=== PATIENT | female | born 1980 | race African-American/Black ===

== ENCOUNTER 2018-07-31 07:50 | Outpatient (CLI) | payer MEDICAID ==
[~2018-07-31] VITALS: Ht 177.8 cm; Wt 66.6 kg
[2018-07-31] MEDS ORDERED: PREN-93 PO (08:01)
[2018-07-31] MEDS ORDERED: FERR134T PO (08:01)
[2018-07-31 08:02] VITALS: BP 126/82; PULSE 100; RESP 20; Ht 177.8 cm; Wt 66.6 kg
--- NOTE | 2018-07-31 09:44 | PN ---
Triage Information Date/Time Reason for visit: Leaking fluid Weeks of Gestation 38-year-old 4 para 1 at 29 weeks of gestation with estimated date of delivery October 16, 2018 Patient presents with chief complaint of leaking fluid, she reports positive movement No vaginal bleeding and no uterine contractions Patient reports a history of urinary tract infection earlier during this /Para 4 para 1 Diabetes: none Hypertention: none Objective Vital Signs Date Temp Pulse Resp B/P (MAP) Pulse Ox O2 O2 Flow FiO2 Time Delivery Rate 07/31/18 97.9 100 20 126/82 Room Air 08:02 (97) Heart Rate: 150's Heart Rate Comments heart rate tracing category 2 in the beginning Contractions: None Results/Medications Results 24 hrs Laboratory Tests Test 07/31/18 08:00 07/31/18 08:10 Urine Color YELLOW Urine Clarity SLIGHTLY CLOUDY A Urine pH 7.0 Urine Specific [place] 1.015 Urine Ketones NEGATIVE Urine Nitrite NEGATIVE Urine Bilirubin NEGATIVE Urine Urobilinogen NEGATIVE Urine Leukocyte Esterase 2+ H Urine Microscopic RBC 0 Urine Microscopic WBC 5 Urine Squamous Epithelial Cells MODERATE Urine Hemoglobin NEGATIVE Urine Glucose NEGATIVE Urine Total Protein NEGATIVE Membranes Rupture NEGATIVE Imaging Results PROCEDURE: US OB biophysical profile. CLINICAL INDICATION: decreased movements, small for dates TECHNIQUE: Multiple sonographic images of the pelvis were obtained. The images were reviewed on a PACS workstation. COMPARISON: 07/31/2018 FINDINGS: There is a single live intrauterine gestation. Cardiac activity is present with 150 beats per minute. There is a vertex presentation. The placenta is anterior/posterior. There is no evidence of placental abruption. There is a normal amount of amniotic fluid with an MIMI = 13.3 cm. Biophysical profile: movement 2/2 tone 2/2. breathing 2/2 MIMI 2/2 Total 01/06 RPTAT: AA . IMPRESSION: Normal biophysical profile. . .Lebron Tam MD, Date Time Electronically viewed and signed by .Lebron Tam MD, MD on 07/31/2018 09:44 .S/ CC: ADAM GARIBAY MD [id number] PROCEDURE: US OB. CLINICAL INDICATION: Size and dates TECHNIQUE: Multiple sonographic images of the pelvis and gravid uterus were obtained. The images were reviewed on a PACS workstation. COMPARISON: No prior studies are available for comparison. FINDINGS: Gestation: Single live intrauterine gestation. Cardiac activity: 150 beats per minute. Presentation: Vertex. Placenta: Location: Anterior/posterior Appearance: No previa or abruption. Amniotic Fluid: MIMI = 13.2 cm Measurements: BPD = 7.2 cm, 29 weeks and 0 days HC = 26.2 cm, 28 weeks and 3 days AC = 24.2 cm, 28 weeks and 3 days FL = 5.7 cm, 30 weeks and 0 days Gestational Age: AUA estimated gestational age: 29 weeks 0 days LMP estimated gestational age: 29 weeks 0 days AUA estimated date of delivery: 10/16/18 The EFW = 1321 g, 37.2%ile based on LMP age. RPTAT: AA IMPRESSION: Single live intrauterine gestation of 29 weeks 0 days by ultrasound criteria. .Lebron Tam MD, MD Date Time Electronically viewed and signed by .Lebron Tam MD, MD on 07/31/2018 09:45 .S/ CC: ADAM GARIBAY MD [phone] Disposition: Discharge Assessment/Plan Urinalysis suggestive of urinary tract infection Prescription for Macrobid was given Urine culture was sent Prolonged heart rate monitoring for several hours and heart rate tracing remained category 1 Patient to return in 2 days for repeat NST and BPP kick count instructions were given Instructed to increase fluid hydration Patient instructed to follow-up with her own MANAGER SALT in 1-2 days ADAM GARIBAY MD Jul 31, 2018 09:44
--- NOTE | 2018-07-31 13:47 | TRIAGE ---
OB Triage Datetime Report Generated by CPN: 07/31/2018 13:47 Datetime: 07/31/2018 12:58 Labor Evaluation Frequency: 0 Monitor Mode: External Pattern: Normal: <= 5 Contractions in 10 Minutes Resting Tone [place]: Relaxed Heart Rate FHR Baseline Rate: 150 Monitor Mode: External US Variability: Moderate 6-25 bpm Accelerations: 15X15 Decelerations: None Category: Category I Datetime: 07/31/2018 12:56 Comments: VIEWED BY MD, OK TO D/C HOME Datetime: 07/31/2018 12:00 Labor Evaluation Frequency: 0 Monitor Mode: External Pattern: Normal: <= 5 Contractions in 10 Minutes Resting Tone [place]: Relaxed Heart Rate FHR Baseline Rate: 150 Monitor Mode: External US Variability: Moderate 6-25 bpm Accelerations: 15X15 Decelerations: None Category: Category I Datetime: 07/31/2018 11:00 Labor Evaluation Frequency: 0 Monitor Mode: External Pattern: Normal: <= 5 Contractions in 10 Minutes Resting Tone [place]: Relaxed Heart Rate FHR Baseline Rate: 150 Monitor Mode: External US Variability: Moderate 6-25 bpm Accelerations: 15X15 Decelerations: Variable Category: Category II Comments: REVIEWED BY DR GARIBAY Datetime: 07/31/2018 10:00 Labor Evaluation Frequency: 0 Monitor Mode: External Pattern: Normal: <= 5 Contractions in 10 Minutes Resting Tone [place]: Relaxed Heart Rate FHR Baseline Rate: 150 Monitor Mode: External US Variability: Moderate 6-25 bpm Accelerations: 15X15 Decelerations: None Category: Category I Datetime: 07/31/2018 09:26 Comments: U/S BACK AT BEDSIDE Datetime: 07/31/2018 09:00 Labor Evaluation Frequency: 0 Monitor Mode: External Pattern: Normal: <= 5 Contractions in 10 Minutes Resting Tone [place]: Relaxed Heart Rate FHR Baseline Rate: 150 Monitor Mode: External US Variability: Moderate 6-25 bpm Accelerations: 10X10 Decelerations: Variable Category: Category II Datetime: 07/31/2018 08:58 Comments: decel noted fr baseline 150 down to 120's for 50 seconds with spontaneous return to basel ine Datetime: 07/31/2018 08:44 Comments: MD STATES TRACING IS APPROPRIATE FOR GESTATIONAL AGE Datetime: 07/31/2018 08:20 EGA: 29.0 Datetime: 07/31/2018 08:19 Time of Arrival: 07/31/2018 07:45 Arrived By: Ambulatory Arrived From: Home Chief Complaint: VAGINAL LEAKING Movement: Present Contractions: Denies/Absent Rupture of Membranes: Unsure Vaginal Bleeding: None Vaginal Discharge: Present Abdominal Trauma: Not Applicable Patient Complaints: Cramping Additional Patient Complaints: IRREGULAR CRAMPING Time Provider Notified: 07/31/2018 07:45 Provider Notified: [place] Initial Plan: NST AND CALL OB FOR ORDERS Datetime: 07/31/2018 08:11 Comments: u/s tech at bedside Datetime: 07/31/2018 08:00 Assessment Type: Triage Maternal Assessment Level of Consciousness: Fully Conscious DTR's/Clonus: DTRs 2+; No Clonus Headache: Denies Blurred Vision: No Respiratory Effort: Unlabored; Regular Rhythm; Equal Expansion Nausea/Vomiting: Denies RUQ Epigastric Pain: Denies Lower Extremities Edema: None Degree: None Upper Extremities Edema: None Degree: None Facial Edema: None Fall Risk Assessment History of Falling: (0) No Secondary Diagnosis: (0) No Ambulatory Aid: (0) Bedrest/Nurse Assist IV Therapy: (0) No Gait: (0) Normal/Bedrest/Immobile Mental Status: (0) Oriented to Own Ability Fall Score: 0 Fall Risk Score Definition: No Risk: No action required
== END 2018-07-31 13:12 | disposition home or self-care (01) ==
LOC: L-D 07:50 → OBT 07:50
PROVIDERS: ATTEND Specialist
DX: O26.853 Spotting complicating pregnancy, third trimester (principal); O36.5930 Maternal care for other known or suspected poor fetal growth, third trimester, not applicable or unspecified; O23.43 Unspecified infection of urinary tract in pregnancy, third trimester; Z3A.29 29 weeks gestation of pregnancy
CPT/HCPCS: 76815; 76818; 81001; 84112; 87086; Z7500; G0463

== ENCOUNTER 2018-08-02 10:22 | Outpatient (CLI) | payer MEDICAID ==
[~2018-08-02] VITALS: Ht 177.8 cm; Wt 66.4 kg
[~2018-08-02 10:22] MED LIST: FERR134T PO; PREN-93 PO
[2018-08-02 10:29] VITALS: Ht 177.8 cm; Wt 66.4 kg
--- NOTE | 2018-08-02 11:47 | TRIAGE ---
OB Triage Datetime Report Generated by CPN: 08/02/2018 11:47 Datetime: 08/02/2018 10:53 Time of Arrival: 08/02/2018 10:20 EGA: 29.2 Arrived By: Ambulatory Arrived From: Home Chief Complaint: Follow up BPP/MIMI Movement: Present Contractions: Denies/Absent Rupture of Membranes: Denies Vaginal Bleeding: Normal Show Vaginal Discharge: Denies Recent Sexual Intercouse: Denies Abdominal Trauma: Not Applicable Patient Complaints: None Initial Plan: NST/BPP _ MIMI Datetime: 08/02/2018 10:50 Labor Evaluation Monitor Mode: External Resting Tone [place]: Relaxed Heart Rate FHR Baseline Rate: 150 Monitor Mode: External US FHR Baseline Changes: No Baseline Change Variability: Moderate 6-25 bpm Accelerations: 15X15 Decelerations: None Category: Category I Comments: NST DONE Pain Assessment Pain Presence: None/Denies Datetime: 08/02/2018 10:30 Assessment Type: Triage Maternal Assessment Level of Consciousness: Fully Conscious DTR's/Clonus: DTRs 2+; No Clonus Headache: Denies Blurred Vision: No Respiratory Effort: Unlabored; Regular Rhythm; Equal Expansion Breath Sounds, Left: Clear and Equal Breath Sounds, Right: Clear and Equal Nausea/Vomiting: Denies RUQ Epigastric Pain: Denies Lower Extremities Edema: None Degree: None Upper Extremities Edema: None Degree: None Facial Edema: None Fall Risk Assessment History of Falling: (0) No Secondary Diagnosis: (0) No Ambulatory Aid: (0) Bedrest/Nurse Assist IV Therapy: (0) No Gait: (0) Normal/Bedrest/Immobile Mental Status: (0) Oriented to Own Ability Fall Score: 0 Fall Risk Score Definition: No Risk: No action required Datetime: 08/02/2018 10:24 Monitor Mode: External US Datetime: 07/31/2018 08:20 EGA: 29.0 Datetime: 07/31/2018 08:00 Fall Score: 0 Fall Risk Score Definition: No Risk: No action required
--- NOTE | 2018-08-02 11:53 | PN ---
Triage Information Date/Time Reason for visit: Reepat NST BPP as she was check for PPROM last visit Weeks of Gestation 29+ /Para n/a Diabetes: none Hypertention: none Objective Heart Rate: 140's Contractions: None Disposition: Discharge Assessment/Plan BPP 03/10 Precautions discussed Follow up with provider Questions answered TYSON LOVELL M.D. Aug 02, 2018 11:52
== END 2018-08-02 11:50 | disposition home or self-care (01) ==
LOC: OBT 10:22 → L-D 10:23 → OBT 11:50
PROVIDERS: ATTEND Specialist
DX: O36.8130 Decreased fetal movements, third trimester, not applicable or unspecified (principal); Z3A.29 29 weeks gestation of pregnancy
CPT/HCPCS: 76818; Z7500; G0463

== ENCOUNTER 2018-09-19 20:01 | Outpatient (CLI) | payer MEDICAID ==
[~2018-09-19] VITALS: Ht 179.1 cm; Wt 66.4 kg
[2018-09-19 20:23] VITALS: BP 114/76; PULSE 102; RESP 20; Ht 179.1 cm; Wt 66.4 kg
--- NOTE | 2018-09-19 23:19 | PN ---
Triage Information Date/Time 09/19/18 Reason for visit: Vag spotting / bleeding Weeks of Gestation 36w1d /Para Diabetes: none Hypertention: none Additional information had intercourse this am dark blood no cramping pain Objective Vital Signs Date Temp Pulse Resp B/P (MAP) Pulse Ox O2 O2 Flow FiO2 Time Delivery Rate 09/19/18 98.2 102 20 114/76 Room Air 20:23 (89) Heart Rate Comments CAT I Contractions: None Results/Medications Imaging Results BPP 01/06 no previa or abruptio MIMI 15.7 Disposition: Discharge Assessment/Plan A IUP 36w1d postcoital bleeding P discharge home with routine labor instructions no more intercourse till delivery JUAN JOSÉ MELTON MD Sep 19, 2018 23:19
--- NOTE | 2018-09-20 01:03 | TRIAGE ---
OB Triage Datetime Report Generated by CPN: 09/20/2018 01:02 Datetime: 09/19/2018 21:34 Stage of : OB Triage Labor Evaluation Frequency: Irritability Monitor Mode: External Duration (sec)2399: 20-30 Quality: Mild Pattern: Normal: <= 5 Contractions in 10 Minutes Resting Tone [place]: Relaxed Heart Rate FHR Baseline Rate: 150 Monitor Mode: External US FHR Baseline Changes: No Baseline Change Variability: Moderate 6-25 bpm Accelerations: 15X15 Decelerations: None Category: Category I Pain Assessment Pain Scale: 0 Pain Presence: None/Denies Pain Type: N/A Datetime: 09/19/2018 21:30 Stage of : OB Triage Datetime: 09/19/2018 21:00 Stage of : OB Triage Labor Evaluation Frequency: Irritability/Occasional Monitor Mode: External Duration (sec)2399: 20-110 Quality: Mild Pattern: Normal: <= 5 Contractions in 10 Minutes Resting Tone [place]: Relaxed Heart Rate FHR Baseline Rate: 150 Monitor Mode: External US FHR Baseline Changes: No Baseline Change Variability: Moderate 6-25 bpm Accelerations: 15X15 Pain Assessment Pain Scale: 0 Pain Presence: None/Denies Pain Type: N/A Datetime: 09/19/2018 20:15 Stage of : OB Triage Datetime: 09/19/2018 20:07 Time of Arrival: 09/19/2018 19:53 EGA: 36.1 Arrived By: Ambulatory Arrived From: Home Chief Complaint: Pantyliner filled with dark red blood @1930. Sex this AM. Back pain yesterday. None today. Movement: Present Contractions: Denies/Absent Rupture of Membranes: Denies Vaginal Bleeding: Moderate; Dark Red Vaginal Discharge: Present Recent Sexual Intercouse: Yes Abdominal Trauma: Not Applicable Patient Complaints: Other Time Provider Notified: 09/19/2018 20:15 Provider Notified: Initial Plan: Monitor. U/S. Datetime: 09/19/2018 20:05 Stage of : OB Triage Assessment Type: Triage Maternal Assessment Level of Consciousness: Fully Conscious DTR's/Clonus: DTRs 2+; No Clonus Headache: Denies Blurred Vision: No Respiratory Effort: Unlabored; Regular Rhythm; Equal Expansion Breath Sounds, Left: Clear and Equal Breath Sounds, Right: Clear and Equal Nausea/Vomiting: Denies RUQ Epigastric Pain: Denies Lower Extremities Edema: None Degree: None Upper Extremities Edema: None Degree: None Facial Edema: None Temperature Route: Oral Fall Risk Assessment History of Falling: (0) No Secondary Diagnosis: (0) No Ambulatory Aid: (0) Bedrest/Nurse Assist IV Therapy: (0) No Gait: (0) Normal/Bedrest/Immobile Mental Status: (0) Oriented to Own Ability Fall Score: 0 Fall Risk Score Definition: No Risk: No action required Pain Assessment Pain Scale: 0 Pain Presence: None/Denies Pain Type: N/A Datetime: 09/19/2018 20:04 Monitor Mode: External Contraction Comments: [place] applied Heart Rate FHR Baseline Rate: 150 Monitor Mode: External US Comments: EFM applied Datetime: 08/02/2018 10:53 EGA: 29.2 Datetime: 08/02/2018 10:30 Fall Score: 0 Fall Risk Score Definition: No Risk: No action required Datetime: 07/31/2018 08:20 EGA: 29.0 Datetime: 07/31/2018 08:00 Fall Score: 0 Fall Risk Score Definition: No Risk: No action required
== END 2018-09-19 21:44 | disposition home or self-care (01) ==
LOC: OBT 20:01 → L-D 20:02 → OBT 21:44
PROVIDERS: ATTEND Specialist
DX: O26.893 Other specified pregnancy related conditions, third trimester (principal); N93.0 Postcoital and contact bleeding; O09.523 Supervision of elderly multigravida, third trimester; Z3A.36 36 weeks gestation of pregnancy
CPT/HCPCS: 76818; Z7500; G0463

== ENCOUNTER 2018-10-20 05:40 | Inpatient (IN) | payer MEDICAID ==
[~2018-10-20] VITALS: Ht 179.1 cm; Wt 70.5 kg
[2018-10-20] MEDS: LACTATED RINGER'S 1,000 ML IV SCH ×2 (06:20→22:22)
[2018-10-20 06:26] VITALS: Ht 179.1 cm; Wt 70.5 kg
[2018-10-20] MEDS ORDERED: OXYTOCIN 30 UNITS/LR 500 ML IV PRN (06:30)
[2018-10-20] MEDS ORDERED: METHYLERGONOVINE 0.2 MG INJ IM PRN (06:30)
[2018-10-20] MEDS ORDERED: MINERAL OIL LIGHT 10 ML VIAL TOP PRN (06:30)
[2018-10-20] MEDS ORDERED: LIDOCAINE 1% (MPF) 30 ML INJ INJ PRN (06:30)
[2018-10-20] MEDS ORDERED: OXYTOCIN 30 UNITS/LR 500 ML IV SCH ×2 (06:30)
[2018-10-20] MEDS ORDERED: MISOPROSTOL 200 MCG TAB PR PRN (06:30)
[2018-10-20] MEDS ORDERED: BUTORPHANOL 2 MG INJ IV PRN (06:30)
[2018-10-20] MEDS ORDERED: CARBOPROST 250 MCG INJ IM PRN (06:30)
[2018-10-20] MEDS ORDERED: IBUPROFEN 600 MG TAB PO PRN (06:30)
[2018-10-20] MEDS: OXYTOCIN 30 UNITS/LR 500 ML IV SCH (07:35)
--- NOTE | 2018-10-20 07:58 | HP ---
Date/Time of Note Date/Time of Note DATE: 10/20/18 TIME: 07:55 OB - History Hx of Present Free Text/Dictation 38 YO with IUP at 40.4 weeks with EDC 10/16/2018 who is here for IOL. EFW is under 8 Lb. NST with moderate variability and accelerations, but also one prolonged deceleration when she was on her back. This was d/w patient. possible need for C/S d/w pt Care: Good Care Obstetrical Complications: None Medical Complications: None Past Family/Social History * Past Medical, Surgical, Family and Obstetric Histories reviewed from chart. OB Admission Exam Physical Exam HEENT: WNL Heart: Rhythm Normal Lungs: Clear, Equal Abdomen: WNL Extremities: Normal Reflexes: Normal Cervical Dilatation: 2cm Effacement: 50% Station: -2 Membranes: Intact Accelerations: Accelerations Present Decelerations: Prolonged Decelerations Varibility: Moderate Contractions on Admission: < 5 Minutes Apart Intensity: Mild Last 72 hours Lab Results CBC & BMP 10/20/18 06:20 OB Assessment/Plan Reason for admission: induction of labor Induction Method: per Pitocin Protocol TRIP CORONEL MD October 20, 2018 07:58
--- NOTE | 2018-10-20 23:15 | PREAC ---
Date/Time of Note Date/Time of Note DATE: 10/20/18 TIME: 23:14 Anesthesia Eval and Record Evaluation Time Pre-Procedure Interview DATE: 10/20/18 TIME: 23:14 Age 38 Sex female NPO: Other Preoperative diagnosis labor pain Planned procedure epidural Past Medical History Past Medical History: None Surgery & Anesthesia Issues No known issue Meds Anticoagulation: No Beta Renny within 24 hr: No Reason Beta Renny not given: Pt. not on B-Renny Reported Medications Ferrous Sulfate (Iron) 134 Mg Tablet, 134 MG PO DAILY, TAB 07/31/18 Vit No.124/Iron/FA ( Vitamin Tablet) 1 Each Tablet, 1 EACH PO DAILY, TAB 07/31/18 Current Medications Lactated Ringer's 1,000 ml @ 125 mls/hr Q8H IV Last administered on 10/20/18at 22:22; Admin Dose 125 MLS/HR; Start 10/20/18 at 06:29 Butorphanol Tartrate (Stadol) 2 mg Q2H PRN IV .PAIN SCALE 6-10; Start 10/20/18 at 06:30 Lidocaine (Xylocaine 1% (Mpf)) 30 ml ONCE PRN INJ .EPISIOTOMY; Start 10/20/18 at 06:30 Oxytocin/Lactated Ringer's 500 ml @ 500 mls/hr ONCE POST IV ; Start 10/20/18 at 06:30 Oxytocin/Lactated Ringer's 500 ml @ 125 mls/hr POST IV ; Start 10/20/18 at 06:30 Ibuprofen (Motrin) 600 mg ONCE PRN PO .PAIN 1-5; Start 10/20/18 at 06:30 Oxytocin/Lactated Ringer's 500 ml @ 0 mls/hr ONCE PRN IV .VAGINAL BLEEDING; Start 10/20/18 at 06:30 Methylergonovine Maleate (Methergine) 0.2 mg ONCE PRN IM .VAGINAL BLEEDING; Start 10/20/18 at 06:30 Carboprost Tromethamine (Hemabate) 250 mcg ONCE PRN IM .VAGINAL BLEEDING; Start 10/20/18 at 06:30 Misoprostol (Cytotec) 1,000 mcg ONCE PRN CO .VAGINAL BLEEDING; Start 10/20/18 at 06:30 Mineral Oil (Muri-Lube) 10 ml ONCE PRN TOP VAGINAL DELIVERY; Start 10/20/18 at 06:30 Oxytocin/Lactated Ringer's 500 ml @ 0 mls/hr Q0M IV Last administered on 10/20/18at 07:35; Admin Dose 1 MLS/HR; Start 10/20/18 at 07:30 Meds reviewed: Yes Allergies Coded Allergies: No Known Allergies (Verified Allergy, Unknown, 10/20/18) Allergies Reviewed: Yes Labs/Studies Labs Reviewed: Reviewed by anesthesiologist Result Diagram: 10/20/18619 Laboratory Tests 10/20/18 06:20 Blood Bank Test 10/20/18 06:20 Antibody Screen NEGATIVE Blood Type A POSITIVE Rh Immune Globulin Candidate NO test: N/A Pre-procedure Exam Airway: Adequate mouth opening, Adequate thyromental dist Mallampati: Mallampati IV Teeth: Normal Lung: Normal Heart: Normal ASA Physical Status ASA physical status: 2 Emergency: None Pre-operative Attestations Prior to commencing anesthesia and surgery, the patient was re-evaluated, there was verification of: *The patient's identity *The results of appropriate recent lab work and preoperative vital signs *The above evaluation not changing prior to induction *Anesthetic plan, risk benefits, alternative and complications discussed with patient/family; questions answered; patient/family understands, accepts and wishes to proceed. ANGLE ONEILL DO October 20, 2018 23:15
[2018-10-20] MEDS ORDERED: FENTAnyl 2MCG/ML-ROPIV 0.2% 100 ML ONE (23:18)
[2018-10-20] MEDS ORDERED: FENTAnyl 50 MCG/ML VIAL ONE (23:18)
[2018-10-20] MEDS ORDERED: FENTAnyl 2MCG/ML-ROPIV 0.2% 100 ML BAG EPI SCH (23:30)
[2018-10-20] MEDS ORDERED: NALOXONE (0.4 MG/ML) INJ IV PRN (23:30)
--- NOTE | 2018-10-20 23:58 | PAC ---
Date/Time of Note Date/Time of Note DATE: 10/20/18 TIME: 23:57 Post-Anesthesia Notes Post-Anesthesia Note Last documented vital signs 112/63 85 100% 98 22 Activity: WNL Respiratory function: WNL Cardiovascular function: WNL Mental status: Baseline Pain reasonably controlled: Yes Hydration appropriate: Yes Nausea/Vomiting absent: Yes ANGLE ONEILL DO October 20, 2018 23:58
[2018-10-21] MEDS: LACTATED RINGER'S 1,000 ML IV SCH ×4 (02:50→22:29)
--- NOTE | 2018-10-21 09:18 | QN ---
Documentation Comment had late decelerations. resolved. NST is reassuring without late deceleration now AROM. + [facility] TRIP CORONEL MD October 21, 2018 09:18
[2018-10-21] MEDS: OXYTOCIN 30 UNITS/LR 500 ML IV SCH (10:19)
[2018-10-21] MEDS: LACTATED RINGER'S 1,000 ML IV* SCH ×2 (14:56→22:56)
--- NOTE | 2018-10-21 14:56 | LDN ---
Date/Time of Note Date/Time of Note DATE: 10/21/18 TIME: 14:54 Delivery Summary 38 YO with IUP at 40.4 weeks with EDC 10/16/2018. s/p of viable . After delivery of the head the rest of the body delivered easily. I did not apply excessive traction. Placenta delivered spontaneously and intact. evaluation of the placenta confirmed intact placenta. Uterus was firm with cervix closed on exam. perineum intact. Placenta Delivered: Spontaneously Meconium: Light Episiotomy: No Perineal laceration: 0 Anesthesia type: Epidural Estimated blood loss: 300 Sponge & Needle done & correct: Yes All needle counts correct: Yes Any foreign bodies felt in the: No Delivery Information Sex Sex: male Apgars 1 Minute: 9 5 Minute: 9 Suctioning Nose & mouth suctioned at dayday: No Delee suction performed: No Umbilical Cord Umbilical cord with: 3 Vessels Cord presentations: nuchal cord Nuchal cord present X: 1 Cord Blood was obtained: Yes Mother & Baby Disposition Disposition Mom & Baby to Maternity; Good: Yes TRIP CORONEL MD October 21, 2018 14:56
[2018-10-21] MEDS ORDERED: CARBOPROST 250 MCG INJ IM PRN (15:00)
[2018-10-21] MEDS ORDERED: LANOLIN HPA 1 PKT TOP PRN (15:00)
[2018-10-21] MEDS ORDERED: OXYTOCIN 30 UNITS/LR 500 ML IV PRN (15:00)
[2018-10-21] MEDS ORDERED: DIBUCAINE 1% 30 GM OINT TOP PRN (15:00)
[2018-10-21] MEDS ORDERED: NA PHOSPHATE/BIPHOS 133 ML ENEMA PR PRN (15:00)
[2018-10-21] MEDS ORDERED: DIPHENHYDRAMINE 25 MG CAP PO PRN (15:00)
[2018-10-21] MEDS ORDERED: DIPHENHYDRAMINE 50 MG INJ IV PRN (15:00)
[2018-10-21] MEDS ORDERED: MAGNESIUM HYDROXIDE 30ML CUP PO PRN (15:00)
[2018-10-21] MEDS ORDERED: ONDANSETRON 4 MG INJ IV PRN (15:00)
[2018-10-21] MEDS ORDERED: HYDROCODONE/APAP (5/325) TAB PO PRN ×2 (15:00)
[2018-10-21] MEDS ORDERED: SENNA/DOCUSATE NA (8.6MG/50MG) TAB PO PRN (15:00)
[2018-10-21] MEDS ORDERED: WITCH HAZEL/GLYCERIN PAD PR PRN (15:00)
[2018-10-21] MEDS ORDERED: BENZOCAINE 20% 56 ML SPRAY TOP PRN (15:00)
[2018-10-21] MEDS ORDERED: ONDANSETRON 4 MG TAB PO PRN (15:00)
[2018-10-21] MEDS ORDERED: MISOPROSTOL 200 MCG TAB PR PRN (15:00)
[2018-10-21 16:40] VITALS: BP 121/86; PULSE 86; RESP 17
[2018-10-21] MEDS: IBUPROFEN 600 MG TAB PO SCH (17:54)
[2018-10-21 20:30] VITALS: BP 108/73; PULSE 102; RESP 18
[2018-10-21] MEDS: SENNA/DOCUSATE NA (8.6MG/50MG) TAB PO SCH (20:43)
[2018-10-22] MEDS: IBUPROFEN 600 MG TAB PO SCH ×4 (00:09→17:49)
[2018-10-22 04:00] VITALS: BP 108/83; PULSE 81; RESP 18
[2018-10-22] MEDS: LACTATED RINGER'S 1,000 ML IV SCH ×3 (06:29→22:29)
[2018-10-22] MEDS: LACTATED RINGER'S 1,000 ML IV* SCH (06:56)
[2018-10-22 08:00] VITALS: BP 118/77; PULSE 91; RESP 18
[2018-10-22] MEDS: SENNA/DOCUSATE NA (8.6MG/50MG) TAB PO SCH ×2 (09:40→22:02)
[2018-10-22 16:00] VITALS: BP 132/86; PULSE 91; RESP 18
[2018-10-22 20:31] VITALS: BP 120/84; PULSE 88; RESP 16
[2018-10-23] MEDS: IBUPROFEN 600 MG TAB PO SCH ×3 (00:50→13:26)
[2018-10-23 04:00] VITALS: BP 125/80; PULSE 76; RESP 16
[2018-10-23 08:45] VITALS: BP 123/84; PULSE 84; RESP 20
[2018-10-23] MEDS ORDERED: DIPHTH/TET/ACEL PERTUSS (ADULT) 0.5 ML VIAL IM* ONE (09:00)
[2018-10-23] MEDS ORDERED: VARICELLA VACCINE LIVE/PF 1,350 UNIT/0.5 ML ML SC* ONE (09:00)
[2018-10-23] MEDS ORDERED: MEASLES,MUMPS,RUBELLA VACCINE INJ SC* ONE (09:00)
[2018-10-23] MEDS: SENNA/DOCUSATE NA (8.6MG/50MG) TAB PO SCH (09:11)
--- NOTE | 2018-10-23 16:46 | DS ---
Date/Time of Note Date/Time of Note DATE: 10/23/18 TIME: 16:45 Obstetrical Discharge Record Final Diagnosis Final Diagnosis: Term delivered Other Final Diagnosis day #2 Status post Patient stable and afebrile Vital signs stable Hematology - 72 Hrs Test 10/22/18 06:58 Hematocrit 29.3 % (37.0-47.0) L Hemoglobin 9.6 g/dl (12.0-16.0) L Mean Corpuscular Hemoglobin 28.7 pg (29.0-33.0) L Mean Corpuscular Hemoglobin Concent 32.8 g/dl (32.0-37.0) Mean Corpuscular Volume 87.5 fl (82.0-101.0) Mean Platelet Volume 10.7 fl (7.4-10.4) H Platelet Count 180 10^3/UL (140-415) Red Blood Count 3.35 10^6/ul (4.20-5.40) L Red Cell Distribution Width 14.4 % (11.5-14.5) White Blood Count 9.7 10^3/ul (4.8-10.8) # Abdomen soft, fundus firm Perineum intact Extremities nontender Assessment and plan Patient stable and doing well Plan to discharge home Patient instructed to follow-up with her own DESIGN AND SALES CONSULTANT in 2 and 6 weeks Vaginal Delivery Obstetrical Delivery: Spontaneous Condition on Discharge Physical Assessment Last Vitals: VS - Last 72 Hours, by Label Date Temp Pulse Resp B/P (MAP) Pulse Ox O2 O2 Flow FiO2 Time Delivery Rate 10/23/18 98.6 84 20 123/84 Room Air 08:45 (97) 10/23/18 98.1 76 16 125/80 Room Air 04:00 (95) 10/22/18 98.0 88 16 120/84 Room Air 20:31 (96) 10/22/18 98.2 91 18 132/86 Room Air 16:00 (101) 10/22/18 98.0 91 18 118/77 Room Air 08:00 (91) 10/22/18 97.9 81 18 108/83 Room Air 04:00 (91) 10/21/18 98.4 102 18 108/73 Room Air 20:30 (85) 10/21/18 98.2 86 17 121/86 Room Air 16:40 (98) Voiding: Yes Bowel Movement: Yes Breast: Soft, non-tender Fundus: Firm Calf Tenderness: No Patient Condition: Good Copies To: CC: TRIP CORONEL MD ; ADAM GARIBAY MD October 23, 2018 16:46
--- NOTE | 2018-10-24 17:34 | DELSUM ---
Delivery Summary A-C Datetime Report Generated by CPN: 10/24/2018 17:34 DELIVERY PERSONNEL Calender Let Off Operator: Mao, Lorna MATERNAL INFORMATION Medications in Delivery: Oxytocin 30 units Delivery QBL (ml): 312 Placenta Cultured: No Maternal Complications: None LABOR SUMMARY EDC: 10/16/2018 00:00 No. Babies in Womb: 1 Attempted: No Labor Anesthesia: Epidural LABOR INFORMATION Reason for Induction: Postterm Onset of Labor: 10/21/2018 00:01 Complete Dilatation: 10/21/2018 14:10 Oxytocin: Augmentation Group B Beta Strep: Negative Antibiotics # of Doses: 0 Steroids Given: None Reason Steroids Not Administered: Not Applicable MEMBRANES Membranes Rupture Method: Artificial Rupture of Membranes: 10/21/2018 07:50 Length of Rupture (hr): 6.73 Amniotic Fluid Color: Light Meconium Amniotic Fluid Amount: Moderate Amniotic Fluid Odor: None STAGES OF LABOR Stage 1 hr: 14 Stage 1 min: 9 Stage 2 hr: 0 Stage 2 min: 24 Stage 3 hr: 0 Stage 3 min: 3 Total Time in Labor hr: 14 Total Time in Labor min: 36 VAGINAL DELIVERY Episiotomy: None Laceration Extension: N/A Laceration Type: None Laceration Repair: Not Applicable Initial Vag Sponge Count: 10 Final Vag Sponge Count: 10 Initial Vag Sharps Count: 1 Final Vag Sharps Count: 1 Sponge Count Correct: Yes; Vaginal Sweep Performed Sharps Count Correct: Yes BABY A INFORMATION Infant Delivery Date/Time: 10/21/2018 14:34 Method of Delivery: Vaginal Born in Route : No : N/A Forceps: N/A Vacuum Extraction: N/A Shoulder Dystocia : No SHOULDER DYSTOCIA BABY A Delivery Date/Time: 10/21/2018 14:34 PRESENTATION/POSITION BABY A Presentation: Cephalic Cephalic Presentation: Vertex Vertex Position: Left Occipital Anterior Breech Presentation: N/A PLACENTA INFORMATION BABY A Placenta Delivery Time : 10/21/2018 14:37 Placenta Method of Delivery: Spontaneous Placenta Status: Delivered SCORES BABY A Heart Rate 1 min: >100 bpm Resp Effort 1 min: Good Cry Reflex Irritability 1 min: Cough/Sneeze/Pulls Away Muscle Tone 1 min: Active Motion Color 1 min: Body [place], Extremit Blue Resuscitation Effort 1 min: Tactile Stimulation SCORE 1 MIN: 9 Heart Rate 5 min: >100 bpm Resp Effort 5 min: Good Cry Reflex Irritability 5 min: Cough/Sneeze/Pulls Away Muscle Tone 5 min: Active Motion Color 5 min: Body [place], Extremit Blue Resuscitation Effort 5 min: Tactile Stimulation SCORE 5 MIN: 9 INFORMATION BABY A Gestational Age at Delivery: 40.5 Gestational Status: Full Term- 39- 40.6 Weeks Infant Outcome : Liveborn Infant Condition : Stable Sex: Male IDENTIFICATION/MEDS BABY A ID Band Number: [id number] ID Band Location: Right Leg; Left Arm Sensor Location : Cord Clamp Vitamin K Given : Not Given Erythromycin Given: Not Given WEIGHT/LENGTH BABY A Infant Birthweight (gm): 3305 Weight (lb): 7 Weight (oz): 5 Infant Length (in): 20.00 Infant Length (cm): 50.80 CORD INFORMATION BABY A No. Cord Vessels: 3 Nuchal Cord : Around Neck x1, Loose Cord Blood Taken: Yes Infant Suction: Mouth; Nose ASSESSMENT BABY A Infant Complications: Multiple Variable Decels Physical Findings at Delivery: Within Normal Limits Infant Respirations: Appears Normal Drill Operator Pneumatic/ALS Called : No Care By: Ana Rosa Horton RN Transferred To: Remains with Mother
== END 2018-10-23 16:15 | disposition home or self-care (01) | DRG 807 ==
LOC: L-D 05:40 → PP1 10-21 16:30
PROVIDERS: ADMIT Specialist; ATTEND Specialist
PROC: 3E033VJ Introduction of Other Hormone into Peripheral Vein, Percutaneous Approach (ICD-10-PCS; 2018-10-20)
PROC: 10E0XZZ Delivery of Products of Conception, External Approach (ICD-10-PCS; principal; 2018-10-21)
DX: O48.0 Post-term pregnancy (principal); Z37.0 Single live birth; O76 Abnormality in fetal heart rate and rhythm complicating labor and delivery; O69.81X0 Labor and delivery complicated by cord around neck, without compression, not applicable or unspecified; Z3A.40 40 weeks gestation of pregnancy
CPT/HCPCS: 62322; 76815; 85025; 85610; 85730; 86592; 86850; 86900; 86901; 87340; 90716; J2590; J3010; J7120